=== PATIENT | female | born 1980 | race Caucasian/White ===

== ENCOUNTER 2018-06-23 13:29 | Emergency (ER) | payer OTHER, MEDICAID, SELFPAY ==
[2018-06-23 13:37] VITALS: BP 119/73; PULSE 86; RESP 14; TEMP 36.7; O2SAT 100; BMI 22.7
[2018-06-23] MEDS: KETOROLAC 60 MG/2 ML VIAL IM (13:52)
--- NOTE | 2018-06-23 14:37 | ED_ITS ---
HPI - Headache General Chief Complaint: Headache Stated Complaint: HEADACHE FOR 5 DAYS Time Seen by Provider: 06/23/18 13:34 Source: patient Mode of arrival: ambulatory Limitations: no limitations History of Present Illness HPI Narrative: Patient is a 38-year-old female who presents with headache and facial pressure. It has been ongoing for the last 5 days. She feels like the pressure moved back and forth between her right and her left side. She has not had any fever. She has no nasal congestion. No neck pain no fevers. She has tried Tylenol and ibuprofen for headache but it is really not helping. All her last dose was yesterday. Her headache is sensitive to light. It is worse when she sits up all 4 cough. She has been drinking water and eating normally. She feels like her eyes are burning and watering. No throat pain no ear pain. MD Complaint: headache Related Data Previous Rx's Medication Instructions Recorded amoxicillin-pot clavulanate 1 tab PO Q12H #14 tab 06/23/18 [Augmentin] Allergies Allergy/AdvReac Type Severity Reaction Status Date / Time hydromorphone [From Dilaudid] Allergy Verified 06/23/18 13:37 Review of Systems Review of Systems ROS Unobtainable: All systems reviewed & are unremarkable except as noted in HPI and below Constitutional Denies frequent falls and Reports headache(s) ENT Ears, Nose, Mouth, and Throat: Reports as per HPI, Denies dizziness, Reports headache(s), Denies neck mass, Denies neck pain, Denies nose pain, Reports sinus pressure and Denies sore throat Cardiovascular Denies chest pain, Denies irregular heart rhythm, Denies lightheadedness, Denies palpitations, Denies dyspnea, Denies dyspnea on exertion and Denies orthopnea Respiratory Denies cough, Denies dyspnea, Denies dyspnea on exertion and Denies wheezing Gastrointestinal Gastrointestinal: Denies abdominal pain, Denies change in bowel habits, Denies diarrhea, Denies nausea and Denies vomiting Musculoskeletal Denies neck pain and Denies numbness Integumentary/Breasts Denies pruritus, Denies erythema, Denies rash and Denies wounds Neurologic Denies behavioral changes, Denies confusion, Denies dizziness, Denies frequent falls, Reports headache(s) and Denies numbness Psychiatric Denies behavioral changes and Denies confusion Endocrine Denies palpitations Allergic/Immunologic Denies wheezing PFSH Social History Smoking Status: Unknown if ever smoked Exam Initial Vital Signs Initial Vital Signs: Vital Signs Temperature 98.1 F 06/23/18 13:37 Pulse Rate 86 06/23/18 13:37 Respiratory Rate 14 06/23/18 13:37 Blood Pressure 119/73 06/23/18 13:37 Pulse Oximetry 100 06/23/18 13:37 GENERAL: Sitting in dark room, alert and oriented x3 HEENT: Head atraumatic,EOMI, pupils reactive, facial tenderness more on left than not right, neck is supple CARDIOVASCULAR: Regular rate and rhythm without murmurs, rubs or gallops. RESPIRATORY: Breath sounds equal bilaterally, no wheezes rales or rhonchi. ABDOMEN: Soft, nontender. Normoactive bowel sounds all 4 quadrants. No guarding or rebound. EXTREMITIES: Normal range of motion, no clubbing or edema. Neurovascularly intact NEUROLOGICAL: Alert and oriented x4.Normal gait and speech. Cranial nerves II through XII grossly intact. Good [id number], good [id number], strength equal bilaterally, no dysarthria or aphasia, sensation in tact to soft touch bilaterally, no visual changes, no facial droop SKIN: Warm, dry, no laceration, no petechiae, no rashes or lesions. Course Orders Ordered: Discontinued Medications Ketorolac Tromethamine (Toradol) 60 mg IM NOW ONE Stop: 06/23/18 13:51 Last Admin: 06/23/18 13:52 Dose: 60 mg Vital Signs - 8 hr 06/23/18 13:37 Temperature 98.1 F Pulse Rate 86 Respiratory Rate 14 Blood Pressure 119/73 Pulse Oximetry 100 MDM - Headache MDM Narrative Medical decision making narrative: Patient has significant headache and facial pain afebrile ongoing for 5 days. Decision to treat with antibiotics based on the symptoms. Pain minimally improved with Toradol. No focal deficits at this time no indication for CT head. Was ever headache is likely exacerbated from a sinusitis. Discharge Plan Departure Patient Disposition: Home Clinical Impression: Sinusitis Discharge Date/Time: 06/23/18 14:51 Interventions: ED Discharge Assessment Last Done: 06/23/18 14:49 Instructions: DI for Sinusitis Activity Restrictions/Additional Instructions: *You have been diagnosed with sinusitis *What to do: Rest, fluids, avoid Sudafed and D congestion. *Continue to take medications as directed Augmentin 875 twice a day Motrin 800 mg every 8 hr if needed for pain *Follow up with your primary care provider in 2-3 days *Return to ER if you should have in increasing pain, fever, neck pain or any new , worsening or concerning symptoms Prescriptions: New amoxicillin-pot clavulanate [Augmentin] 875-125 mg tablet 1 tab PO Q12H Qty: 14 RF: 0 Referrals: Elba Raymond PA-C [Non-Staff] -
== END 2018-06-23 14:51 | disposition home or self-care (01) ==
PROVIDERS: Emergency Provider Emergency Medicine
DX: J01.90 Acute sinusitis, unspecified (principal)
CPT/HCPCS: 96372; 99282; 99283; J1885